=== PATIENT | female | born 1980 | race Caucasian/White ===

== ENCOUNTER 2020-02-11 10:48 | Emergency (ER) | payer OTHER, SELFPAY ==
[~2020-02-11] VITALS: Ht 167.6 cm; Wt 101.2 kg
[2020-02-11 11:16] VITALS: Ht 167.6 cm; Wt 101.2 kg
[2020-02-11 12:26] LABS: BASOPHIL % 0.6 % (0-2); PLATELET COUNT 213 x10^3mcL (130-400); RED CELL DISTRIBUTION WIDTH 13.3 % (11.5-14.5)
[2020-02-11 12:29] LABS: CREATININE SERUM 1.3 mg/dL (0.6-1.0); POTASSIUM SERUM 4.3 mmol/L (3.5-5.1)
[2020-02-11 13:25] VITALS: BP 117/75
== END 2020-02-11 13:25 | disposition home or self-care (01) ==
LOC: ED 10:48
PROVIDERS: Emergency Medicine
DX: U07.1 COVID-19 (principal); Z88.6 Allergy status to analgesic agent; Z90.49 Acquired absence of other specified parts of digestive tract
CPT/HCPCS: 36415; J1885; Q0092; U0003-CS